=== PATIENT | female | born 1970 | race African-American/Black ===

== ENCOUNTER 2019-01-26 08:36 | Emergency (ER) | payer OTHER ==
[~2019-01-26] VITALS: Ht 152.4 cm; Wt 137.9 kg
[2019-01-26] MEDS ORDERED: CEPHALEXIN500 MG PO (09:06)
[2019-01-26] MEDS ORDERED: METFORMIN HCL500 M3 PO (09:07)
[2019-01-26] MEDS ORDERED: ATORVASTATIN CA80 MG PO (09:07)
[2019-01-26] MEDS ORDERED: VALSARTAN80 MG PO (09:08)
[2019-01-26] MEDS ORDERED: SUPER THERAVIT1 EACH PO (09:08)
[2019-01-26] MEDS ORDERED: ASPIR 8181 M1 PO (09:08)
[2019-01-26] MEDS ORDERED: VITAMIN D50000 UNIT PO (09:09)
[2019-01-26] MEDS ORDERED: VITAMIN B12-FO1 EAC1 PO (09:09)
[2019-01-26] MEDS ORDERED: PROBIOTIC1 EAC7 PO (09:10)
[2019-01-26 09:41] LABS: CALCIUM 9.7 mg/dL (8.5-10.1); CREATININE 0.8 mg/dL (0.6-1.3)
[2019-01-26 09:42] LABS: POTASSIUM 4.3 mmol/L (3.5-5.1)
[2019-01-26 13:02] VITALS: BP 109/47
== END 2019-01-26 13:15 | disposition home or self-care (01) ==
LOC: M.ERS 08:36
PROVIDERS: Emergency Medicine Emergency Medical Services
DX: R51 Headache (principal); R11.2 Nausea with vomiting, unspecified; I10 Essential (primary) hypertension; E11.9 Type 2 diabetes mellitus without complications; Z90.710 Acquired absence of both cervix and uterus

== ENCOUNTER 2020-01-14 15:23 | Inpatient (IN) | payer BC ==
[~2020-01-14] VITALS: Ht 152.4 cm; Wt 143.3 kg
[~2020-01-14 15:23] MED LIST: ATORVASTATIN CA80 MG PO; CEPHALEXIN500 MG PO; CHILDREN'S ASPI81 M1 PO; METFORMIN HCL500 M3 PO; PROBIOTIC1 EAC7 PO; SUPER THERAVIT1 EACH PO; VALSARTAN80 MG PO; VITAMIN B12-FO1 EAC1 PO; VITAMIN D50000 UNIT PO
[2020-01-14 15:42] VITALS: BP 137/106
[2020-01-14 16:18] LABS: ABSOLUTE BASOPHILS 0.1 thou/uL (0.0-0.2); ABSOLUTE EOSINOPHILS 0.1 thou/uL (0.0-0.7); ABSOLUTE LYMPHOCYTES 1.7 thou/uL (0.8-5.3); ABSOLUTE MONOCYTES 0.5 thou/uL (0.0-1.2); ABSOLUTE NEUTROPHILS 4.5 thou/uL (1.6-8.1); BASOPHILS 0.8 %; EOSINOPHILS 1.7 %; HEMATOCRIT 41.1 % (37.0-47.0); HEMOGLOBIN 13.5 gm/dL (12.0-15.0); LYMPHOCYTES 24.4 %; MCH 27.9 pg (26.0-34.0); MCHC 32.8 g/dL (28.0-37.0); MCV 85.3 fL (80.0-100.0); MONOCYTES 7.9 %; MPV 7.6 fl. (7.2-11.1); NUCLEATED RBCS 0 /100WBC; PLATELET COUNT* 247 thou/uL (150-400); POLYS 65.2 %; RBC 4.82 mil/uL (4.20-5.00); RDW-CV 14.7 % (10.5-14.5); WBC 6.9 thou/uL (4.0-11.0)
[2020-01-14 16:30] LABS: CALCIUM 8.5 mg/dL (8.5-10.1); POTASSIUM 3.8 mmol/L (3.5-5.1)
[2020-01-14 16:33] LABS: APTT 26.6 Seconds (25.0-31.3); PROTIME 10.5 Seconds (9.20-11.50)
[2020-01-14 16:41] LABS: TOTAL BILIRUBIN 0.6 mg/dL (<0.1-1.0); TOTAL PROTEIN 8.3 g/dL (6.4-8.2)
[2020-01-15 03:00] VITALS: BP 130/78
[2020-01-15 06:28] VITALS: BP 110/81
[2020-01-15 11:30] VITALS: BP 133/70
--- NOTE | 2020-01-15 16:35 | EKG ---
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
[2020-01-15 18:00] VITALS: BP 133/67
[2020-01-15 19:07] VITALS: BP 133/67
[2020-01-15 19:54] LABS: CALCIUM 8.3 mg/dL (8.5-10.1); CREATININE 0.8 mg/dL (0.6-1.3); POTASSIUM 3.9 mmol/L (3.5-5.1)
[2020-01-15 19:57] LABS: MAGNESIUM 2.1 mg/dL (1.8-2.4); PHOSPHORUS* 1.6 mg/dL (2.5-4.9)
[2020-01-15 20:30] VITALS: BP 112/61
[2020-01-16 00:57] VITALS: BP 112/64
[2020-01-16 04:57] VITALS: BP 111/69
[2020-01-16 08:00] VITALS: BP 160/66
[2020-01-16 12:59] VITALS: BP 124/78
[2020-01-16 15:30] VITALS: BP 141/84
[2020-01-16 19:30] VITALS: BP 148/85
[2020-01-17 01:09] VITALS: BP 141/83
[2020-01-17 04:32] VITALS: BP 137/80
[2020-01-17 05:41] LABS: ABSOLUTE LYMPHOCYTES 2.5 thou/uL (0.8-5.3); ABSOLUTE MONOCYTES 0.7 thou/uL (0.0-1.2); ABSOLUTE NEUTROPHILS 6.5 thou/uL (1.6-8.1); BASOPHILS 0.3 %; HEMATOCRIT 37.9 % (37.0-47.0); HEMOGLOBIN 12.2 gm/dL (12.0-15.0); LYMPHOCYTES 25.6 %; MCH 27.4 pg (26.0-34.0); MCHC 32.2 g/dL (28.0-37.0); MONOCYTES 7.2 %; MPV 7.8 fl. (7.2-11.1); NUCLEATED RBCS 0 /100WBC; PLATELET COUNT* 291 thou/uL (150-400); POLYS 66.9 %; RBC 4.46 mil/uL (4.20-5.00); RDW-CV 14.8 % (10.5-14.5); WBC 9.8 thou/uL (4.0-11.0)
[2020-01-17 06:06] LABS: CALCIUM 8.4 mg/dL (8.5-10.1); CREATININE 0.8 mg/dL (0.6-1.3); MAGNESIUM 2.3 mg/dL (1.8-2.4); POTASSIUM 4.2 mmol/L (3.5-5.1); TOTAL BILIRUBIN 0.4 mg/dL (<0.1-1.0); TOTAL PROTEIN 7.1 g/dL (6.4-8.2)
[2020-01-17 08:00] VITALS: BP 149/80
[2020-01-17] MEDS ORDERED: ZITHROMAX TRI-500 MG PO (08:14)
[2020-01-17] MEDS ORDERED: PREDNISONE10 MG PO (08:14)
[2020-01-17 11:17] VITALS: BP 149/80
[2020-01-17 12:02] VITALS: BP 149/80
--- NOTE | 2020-01-18 08:43 | CON ---
[address] [address] CONSULTATION Name: VENKAT HIGGINS Room: [address] IN M.R.#: [id number] Admission: 01/14/20 Attend Phys: Marysol Sharif MD Discharge: 01/17/20 Date of : 74 Report #: [id number] THIS REPORT FOR: //name// cc: Chiqui Enamorado MD, Ghazal A. MD ~ DATE OF SERVICE: 01/16/2020 Consult has been requested by Dr. Werner. INDICATION FOR CONSULTATION: COVID-19. HISTORY OF PRESENT ILLNESS: A 49-year-old female. Her body mass index is elevated to 62. She has sleep complaints including disturbed sleep at night as well as sleepiness during the day consistent with obstructive sleep apnea, not previously diagnosed. The patient is now admitted with COVID-19. There are several family members that have tested positive for COVID-19. The patient has been having fever and chills and has been increasingly short of breath, has been coughing initially, did also have chest pain with respiration and coughing, which is not a current complaint. The patient has had some yellow sputum and also has been complaining of fatigue and weakness for the last 2 weeks. Since admission, the patient has been treated with dexamethasone as well as azithromycin. Initially, she also received ceftriaxone. States she is feeling better. Shortness of breath has improved. She is currently not on supplemental oxygen. REVIEW OF SYSTEMS: For 12 points is negative except as mentioned above. PAST MEDICAL HISTORY: Hysterectomy, hypertension, diabetes, right foot ulcer. There is a clinical history consistent with obstructive sleep apnea, not previously diagnosed. Morbid obesity, body mass index 62. SOCIAL HISTORY: Lifetime nonsmoker. No known history of heavy alcohol use or illegal drug use. CURRENT MEDICATIONS: List in [facility] reviewed. HOME MEDICATIONS: List in [employer] reviewed. FAMILY HISTORY: Several family members have COVID-19. PHYSICAL EXAMINATION: GENERAL: She is alert, awake and oriented, does not appear to be in any distress at this time. VITAL SIGNS: Has a pulse of 80 and a blood pressure of 141/84. She was not on supplemental oxygen at the time of my evaluation, was saturating in the [place] [address] CONSULTATION Name: VENKAT HIGGINS Room: [address]#: [id number] Admission: 01/14/20 Attend Phys: Marysol Sharif MD Discharge: 01/17/20 Date of : 74 Report #: [id number] Respiratory rate 16-18, afebrile with a temperature of 36.5. HEENT: Head is normocephalic and atraumatic. NECK: Does not show raised JVP. CHEST: Clear to auscultation. HEART: Regular, no murmur. ABDOMEN: Soft and nontender. EXTREMITIES: Lower extremities show trace edema, no calf tenderness. SKIN: Dry and intact. LABORATORY DATA: The patient's chest x-ray, which does show bilateral infiltrates consistent with COVID-19 in [facility] reviewed. Lab work also in [facility] reviewed. ASSESSMENT AND PLAN: 1. COVID-19. The patient appears to be doing better. She is currently not significantly short of breath at rest and is not on supplemental oxygen. Therefore, I agree with continuing with a dexamethasone. I did not, therefore, ordered remdesivir at this time. Suggest reevaluating with labs as well as a chest x-ray tomorrow. In case, she is declining, I will add remdesivir tomorrow. In case, she is improving then she could be discharged home on oral dexamethasone. 2. Pulmonary infiltrates. I also agree with covering for the possibility of secondary bacterial infections with azithromycin. Recommend continuing for 5 more days. Would broaden coverage if she declines and she is able to give us a sputum sample, we will obtain a sputum sample. 3. Obstructive sleep apnea with morbid obesity. She obviously appears to have obstructive sleep apnea. If she is on BiPAP while asleep, there will be obvious benefit. However, the patient currently is not in the COVID unit and is not in a negative pressure room and she is doing fairly well, so I do not feel strongly about starting a positive airway pressure therapy immediately at this time. Certainly, I will have a low threshold of ordering a BiPAP while asleep should she decline regardless that the patient will benefit from a BiPAP while asleep longterm at home and I would be happy to evaluate her after recovery from the current illness in my office and get this set up at her home. To set it up at her home, she will likely need a sleep study per her insurance requirements. 4. Mild fluid overload/edema. I ordered venous Dopplers. Also we would check a D-dimer tomorrow morning. 5. Deep venous thrombosis prophylaxis, Lovenox. Thanks for this consultation. <ELECTRONICALLY SIGNED> By: David Maki MD 01/18/20 0843 18 sridhar Maki MD /nt
== END 2020-01-17 17:20 | disposition home or self-care (01) | DRG 177 ==
LOC: M.ERS 15:23 → M.TBA-ER 18:03 → M.ORTHSURG 01-15 19:22
PROVIDERS: Family Medicine; Internal Medicine; Internal Medicine Critical Care Medicine; ADMIT Internal Medicine; ATTEND Internal Medicine
DX: U07.1 COVID-19 (principal); J12.89 Other viral pneumonia; J96.91 Respiratory failure, unspecified with hypoxia; I10 Essential (primary) hypertension; E11.9 Type 2 diabetes mellitus without complications; E66.01 Morbid (severe) obesity due to excess calories; G47.33 Obstructive sleep apnea (adult) (pediatric); Z79.899 Other long term (current) drug therapy; Z68.44 Body mass index [BMI] 60.0-69.9, adult; Z90.710 Acquired absence of both cervix and uterus; Z79.82 Long term (current) use of aspirin; Z23 Encounter for immunization

== ENCOUNTER 2020-08-03 12:02 | Observation (INO) | payer BC ==
[~2020-08-03] VITALS: Ht 152.4 cm; Wt 141.1 kg
--- NOTE | ~2020-08-03 | OP ---
[facility] [address] [place] [address] OPERATIVE REPORT Name: VENKAT HIGGINS Room: [address] MMike#: [id number] Admission: 08/03/20 Attend Phys: Kory Garcia Discharge: Date of : 74 Report #: [id number] THIS REPORT FOR: cc: Chiqui Enamorado MD, Ghazal A. MD Patterson,Kory Grimm MD ~ DOC #: [id number] Kory Garcia MD DATE OF SURGERY: 08/03/2020 PREOPERATIVE DIAGNOSIS: Acute appendicitis. POSTOPERATIVE DIAGNOSIS: Acute appendicitis. OPERATION: Laparoscopic appendectomy. SURGEON: Kory Garcia MD. ANESTHESIA: General. ESTIMATED BLOOD LOSS: Minimal. SPECIMENS: Appendix. DESCRIPTION OF PROCEDURE: After informed consent was obtained, the patient was brought to the operating room and placed supine. SCDs were placed and working, preoperative antibiotics were administered, general anesthesia was induced. The abdomen was prepped and draped in the usual sterile fashion. A 5 mm incision was made in the left upper quadrant. A 5 mm trocar was placed under direct vision. Pneumoperitoneum was established. A right upper quadrant 10 mm trocar was placed and a left lower quadrant 5 mm trocar was placed, both under direct vision. The appendix was grasped and retracted anteriorly. A window was made in the mesoappendix. Mesoappendix was ligated with a LigaSure device. The base of the appendix was then stapled off with a JIGNESH blue load stapler. It was placed into an Endopouch and removed. The fascia was then closed with a [id number] 0 Vicryl. Skin was closed with 4-0 Monocryl. Incisions were sealed with Steri-Strips. COMPLICATIONS: None. DISPOSITION: The patient was taken to recovery in satisfactory condition. MD ARNULFO Yanez/[place] [address] OPERATIVE REPORT Name: VENKAT HIGGINS Room: [address] MumtazNéstor#: [id number] Admission: 08/03/20 Attend Phys: Kory Garcia Discharge: Date of : 74 Report #: [id number] By: [id number] Garcia MD /nt
[~2020-08-03 12:02] MED LIST changes: +PREDNISONE10 MG PO; +ZITHROMAX TRI-500 MG PO
[2020-08-03 12:11] VITALS: BP 174/55
[2020-08-03 12:31] LABS: URINE BLOOD NEGATIVE (Negative); URINE CLARITY CLEAR; URINE COLOR YELLOW; URINE GLUCOSE-RANDOM NEGATIVE (Negative); URINE KETONES NEGATIVE (Negative); URINE LEUKOCYTES-REFLEX NEGATIVE (Negative); URINE NITRITE-REFLEX NEGATIVE (Negative); URINE PROTEIN NEGATIVE (Negative)
[2020-08-03 12:32] LABS: ABSOLUTE BASOPHILS 0.1 thou/uL (0.0-0.2); ABSOLUTE EOSINOPHILS 0.3 thou/uL (0.0-0.7); ABSOLUTE LYMPHOCYTES 2.3 thou/uL (0.8-5.3); ABSOLUTE MONOCYTES 0.5 thou/uL (0.0-1.2); ABSOLUTE NEUTROPHILS 6.9 thou/uL (1.6-8.1); EOSINOPHILS 2.5 %; HEMATOCRIT 41.6 % (37.0-47.0); HEMOGLOBIN 13.7 gm/dL (12.0-15.0); LYMPHOCYTES 22.7 %; MCH 27.9 pg (26.0-34.0); MCV 84.7 fL (80.0-100.0); MPV 7.7 fl. (7.2-11.1); NUCLEATED RBCS 0 /100WBC; PLATELET COUNT* 251 thou/uL (150-400); POLYS 68.8 %; RBC 4.91 mil/uL (4.20-5.00); RDW-CV 15.8 % (10.5-14.5)
[2020-08-03 12:37] LABS: ICTOTEST (BILI CONFIRMATORY) Negative (Negative); URINE BILIRUBIN 1+ (Negative)
[2020-08-03 12:43] LABS: CALCIUM 9.2 mg/dL (8.5-10.1); CREATININE 0.8 mg/dL (0.6-1.3); POTASSIUM 3.8 mmol/L (3.5-5.1)
[2020-08-03 12:48] LABS: ALBUMIN 3.6 g/dL (3.4-5.0); TOTAL BILIRUBIN 0.6 mg/dL (<0.1-1.0); TOTAL PROTEIN 8.5 g/dL (6.4-8.2)
[2020-08-03 16:10] VITALS: BP 119/74
[2020-08-03 18:40] VITALS: BP 122/75
--- NOTE | 2020-08-03 18:58 | NUR ---
1840: PATIENT TRANSFERED TO FLOOR FROM PACU AT THIS TIME VIA BED ACCOMPANIED BY PACU NURSES. PATIENT ADMITTED FOR OBSERVATION FOR APPY. THREE INCISIONS TO ABDOMEN COVERED WITH STERISTRIPS, C/D/I. PATIENT SLEEPING AT TIME OF TRANSPORT. 20 GAUGE IV TO LEFT FOREARM, SALINE LOCKED. DRESSING C/D/I. NO QUESTIONS OR CONCERNS VOICED AT THIS TIME.
[2020-08-04 00:33] VITALS: BP 107/45
[2020-08-04 03:43] VITALS: BP 111/49
--- NOTE | 2020-08-04 05:30 | NUR ---
PATIENT IN ROOM AT BEGINNING OF SHIFT DROWSY FROM SURGERY; TWO SISTERS PRESENT AT BEDSIDE. PT WITH THREE ABDOMINAL SURGICAL SITES WITH STERI STRIPS; TWO C/D/I AND ONE WITH OLD BLOOD PRESENT. 2100 INSULIN HELD SINCE PT HAD BEEN NPO MOST OF THE DAY AND WAS PROVIDED A BOXED LUNCH AT 2100. PT GIVEN PAIN/NAUSEA MEDICATION X1. PT UP SEVERAL TIMES TO BSC TO VOID. PT ORIENTED TO ROOM/POLICIES AND VERBALIZES UNDERSTANDING. WILL CONTINUE TO MONITOR.
[2020-08-04 09:03] VITALS: BP 116/50
--- NOTE | 2020-08-04 11:05 | EKG ---
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
[2020-08-04 15:28] VITALS: BP 116/50
[2020-08-04 15:40] VITALS: BP 131/59
[2020-08-04 16:32] VITALS: BP 116/50
== END 2020-08-04 15:45 | disposition home or self-care (01) ==
LOC: M.SUR 12:02 → M.ERS 12:02 → M.TBA-ER 17:21 → M.ORTHSURG 18:48
PROVIDERS: Emergency Medicine Emergency Medical Services; ADMIT Surgery; ATTEND Surgery
DX: K35.80 Unspecified acute appendicitis (principal); Z20.822 Contact with and (suspected) exposure to COVID-19; I10 Essential (primary) hypertension; E11.9 Type 2 diabetes mellitus without complications; E78.00 Pure hypercholesterolemia, unspecified; Z79.899 Other long term (current) drug therapy; Z79.82 Long term (current) use of aspirin; Z79.84 Long term (current) use of oral hypoglycemic drugs